=== PATIENT | male | born 1950 | race Caucasian/White ===

== ENCOUNTER 2020-02-10 17:26 | Emergency (ER) | payer OTHER, MEDICARE ==
[~2020-02-10] VITALS: Ht 170.2 cm; Wt 90.7 kg
[~2020-02-10 17:26] MED LIST: CARDIZEM CD120 MG PO; GLUCOPHAGE500 MG; TRICOR48 MG; [UNRECOGNIZED DRUG - OTHER]
[2020-02-10 17:44] LABS: ABSOLUTE LYMPHOCYTES 0.7 thou/uL (0.8-5.3); ABSOLUTE MONOCYTES 0.4 thou/uL (0.0-1.2); ABSOLUTE NEUTROPHILS 6.5 thou/uL (1.6-8.1); BASOPHILS 0.6 %; EOSINOPHILS 0.1 %; HEMATOCRIT 43.3 % (42.0-52.0); HEMOGLOBIN 14.4 gm/dL (14.0-18.0); LYMPHOCYTES 9.7 %; MCH 29.9 pg (26.0-34.0); MCHC 33.3 g/dL (28.0-37.0); MCV 89.8 fL (80.0-100.0); MONOCYTES 4.7 %; MPV 8.9 fl. (7.2-11.1); NUCLEATED RBCS 0 /100WBC; PLATELET COUNT* 270 thou/uL (150-400); POLYS 84.9 %; RBC 4.82 mil/uL (4.50-6.00); RDW-CV 15.3 % (10.5-14.5); WBC 7.7 thou/uL (4.0-11.0)
[2020-02-10 17:50] LABS: CALCIUM 8.6 mg/dL (8.5-10.1); CREATININE 1.1 mg/dL (0.6-1.3); POTASSIUM 3.5 mmol/L (3.5-5.1)
[2020-02-10 17:51] LABS: PROTIME 10.7 Seconds (9.20-11.50)
[2020-02-10 18:01] LABS: ALBUMIN 4.2 g/dL (3.4-5.0); TOTAL BILIRUBIN 0.4 mg/dL (<0.1-1.0)
[2020-02-10 18:38] VITALS: BP 125/70
--- NOTE | 2020-02-11 12:59 | EKG ---
[place] [address] ELECTROCARDIOGRAM REPORT Name: TBIURCIO SCHMITT Room: [facility]#: [id number] Admission: 02/10/20 Attend Phys: Discharge: 02/10/20 Date of : 54 Date of Service: 02/10/201739 Report #: [id number] THIS REPORT FOR: //name// 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: [place] : 1950 Requested By: Italo Li Order Number: [id number] MD: José Sanchez Measurements Intervals [place] Rate: 82 P: 5 WA: 196 QRS: -15 QRSD: 91 T: -19 QT: 377 QTc: 441 Interpretive Statements Sinus rhythm Abnormal R-wave progression, early transition Left ventricular hypertrophy Nonspecific T abnormalities, inferior leads Compared to ECG 03/10/2011 08:53:09 Left ventricular hypertrophy now present T-wave abnormality now present Electronically Signed On 02-11-2020 12:57:37 CDT by José Sanchez [email or web address] <ELECTRONICALLY SIGNED> By: José Sanchez MD, FACC 02/11/20 1257 1740 1740 José Sanchez MD, FACC /EPI
== END 2020-02-10 18:40 | disposition home or self-care (01) ==
LOC: M.ERS 17:26
PROVIDERS: Family Medicine
DX: E11.649 Type 2 diabetes mellitus with hypoglycemia without coma (principal); I10 Essential (primary) hypertension; E78.00 Pure hypercholesterolemia, unspecified; Z96.651 Presence of right artificial knee joint